=== PATIENT | female | born 1945 | race Caucasian/White ===

== ENCOUNTER → 2016-10-12 | Day surgery (SDC) | payer MEDICARE ==
[~2016-10-12] MED LIST: 1-ME1LIQ PO; AMLO5TAB2 PO; ASPI1TAB69 PO; ASPI81TA82 PO; ATOR40TA PO; ATOR40TA16 PO; BUPIVACAINE HCL PF 0.75% 30 ML VIAL ONE; CALCCHW25 CHEW; CALCCHW25 PO; CHEL50TA PO; GLUCTAB PO; LACTATED RINGER'S 1000 ML INJ 1,000 ML ONE; LIDOCAINE 1.5%/EPINEPHrine 1:200,000 PF SOLN 30 ML AMP ONE; LISI-363 PO; LISI-515 PO; LORA-392 PO; LORA1TAB12 PO; MAGN250T13 PO; MAGN500T4 PO; MIDAZOLAM HCL 5 MG/ML VIAL (1 ML) ONE; OMEP20TA PO; ONDANSETRON HCL 4 MG/2 ML VIAL IV PUSH ONE; PROPOFOL 100 MG/10 ML INJ IV ONE; SODIUM CHLOR 0.9% 250 ML BAG IV ONE; VANCOMYCIN HCL 1000 MG VIAL ONE; VITA-13 PO; VITA2000 PO; VITATAB11 PO; ZINC50TA2 PO; ceFAZolin INJ 1,000 MG VIAL ONE
--- NOTE | 2016-10-13 10:54 | MP ---
cc: JOSÉ LUIS RAUSCH DATE OF SURGERY 10/12/2016 PREOPERATIVE DIAGNOSIS Left elbow comminuted displaced fracture of the radial head. POSTOPERATIVE DIAGNOSIS 1. Left elbow comminuted displaced fracture of the radial Head. 2. Left elbow lateral collateral ligament avulsion tear off the lateral humerus. SURGEON José Luis Rausch MD [employer] GARRISON Beal The surgical procedure was assisted by my Advanced Registered Nurse Practitioner. My EXAMINING OFFICER presence was necessary throughout this case for the manipulation and positioning of the surgical extremity. My EXAMINING OFFICER was assisting me throughout the duration of this procedure. The skill set of an Advance Registered Nurse Practitioner was medically necessary to complete this procedure. During the surgical case, the home appliance tech was working at the back table and the Advance Registered Nurse Practitioner was directly assisting me. PROCEDURE 1. Left elbow treatment of radial head fracture with radial head replacement 2. Left elbow open lateral collateral ligament repair ESTIMATED BLOOD LOSS Minimal ANESTHESIA General and interscalene block. TOURNIQUET TIME 35 minutes at 250 mmHg pressure. IMPLANTS Biomet modular radial head system stem 7-mm x 26 and then Biomet explore modular radial head 10-mm x 22-mm diameter. PROCEDURE The patient had regional anesthesia performed. She had appropriate intravenous antibiotics given. She was brought back to the operative theater. General anesthesia was obtained. The left upper extremity was prepped and draped in the usual sterile fashion. We made a standard incision laterally after the tourniquet had been raised. We incised through the interval of the anconeus and extensor carpi ulnaris. We dissected down to the capsular region. We found traumatic rupture of the lateral collateral ligament posteriorly and inferiorly. We incised through the capsule, found several large fragments of the radial head which were significantly displaced and angulated. We removed these and reconstructed them on the back table to form the entire head. This helped us with templating. We were careful with dissection through the annular ligament region so as not to injure the posterior interosseous nerve. We dissected through this with the Bovie. There were no muscle contractions. We prepared the proximal shaft using an oscillating saw to make a nice fresh cut end. We thoroughly irrigated. We then sequentially hand broached which then allowed us to trial a stem and then the head based off the reconstructed head on the back table. We put the elbow through a range of motion. The prosthesis fit very nicely. We took this out and then placed the final Explore Biomet modular radial stem which was 7-mm in width and 26-mm into position. We then placed the Explore modular radial head 10-mm in height and 22-mm in diameter into position and placed the set screw. We put the elbow through a range of motion. The elbow did have better stability with the radial head now reimplanted as before. There was instability of the ulnar humeral joint. Note that there was some scuffing of the capitellum from the initial fracture and we protected the cartilage during the entire case. Note that we reconstructed the new radial head in situ. There was about a 2-mm gap between the radial head and the capitellum so that we did not overs-tuff the joint. The patient had full range of motion. We took fluoroscopic imaging showing excellent alignment. The stem had nice purchase within the bone. The tourniquet was released. Hemostasis was achieved. We repaired the posterior inferior lateral collateral ligament using an Arthrex BioComposite suture tack suture anchor 3 x 14.5. We placed this into the bone at the area of the avulsion site and then repaired the lateral collateral ligament with #2 FiberWire that was attached. We did this with several sutures in [id number] fashion. We closed the overlying deep fascia with 0 Vicryl followed by 2-0 Vicryl for the skin and 3-0 nylon for skin. The patient was placed into a posterior splint. Postoperative plan is early range of motion. MD PLACIDO Yun/KEM /3:31 PM /10:37 AM
== END | disposition home or self-care (01) ==
LOC: ESDC 12:55
PROVIDERS: ATTEND Orthopaedic Surgery
DX: S52.122A Displaced fracture of head of left radius, initial encounter for closed fracture (principal); S53.432A Radial collateral ligament sprain of left elbow, initial encounter
CPT/HCPCS: 01740; 24343; 24666; 64450; 73080; 76000; C1713; C1776; J0690; J2250; J2405; J3370; J7050; J7120

== ENCOUNTER → 2016-10-21 | Day surgery (SDC) | payer MEDICARE ==
[~2016-10-21] VITALS: Ht 149.9 cm; Wt 67.0 kg
[~2016-10-21] MED LIST changes: -ASPI81TA82 PO; -ATOR40TA PO; -BUPIVACAINE HCL PF 0.75% 30 ML VIAL ONE; -CALCCHW25 PO; -CHEL50TA PO; +CYCLOPENTOLATE HCL 1% OPHT SOLN 2 ML BTL ONE; +FLURBIPROFEN 0.03% OPHT SOLN 2.5 ML BTL ONE; +HYALURONIDASE/LIDOCAINE/EPINEPHRINE/BUPIVACAINE 6 ML SYR ONE; -LACTATED RINGER'S 1000 ML INJ 1,000 ML ONE; -LIDOCAINE 1.5%/EPINEPHrine 1:200,000 PF SOLN 30 ML AMP ONE; +LIDOCAINE HCL 1% 30 ML VIAL ONE; -LISI-363 PO; -LORA-392 PO; -MAGN250T13 PO; -MIDAZOLAM HCL 5 MG/ML VIAL (1 ML) ONE; -ONDANSETRON HCL 4 MG/2 ML VIAL IV PUSH ONE; +PHENYLEPHRINE HCL 10% OPTH SOLN 5 ML BTL ONE; +PROPARACAINE HCL 0.5% OPHT SOLN 15 ML BTL ONE; -PROPOFOL 100 MG/10 ML INJ IV ONE; +PROPOFOL 200 MG/20 ML AMP ONE; -SODIUM CHLOR 0.9% 250 ML BAG IV ONE; +SODIUM CHLORID 0.9% 500 ML INJ 500 ML ONE; +TROPICAMIDE 1% OPHT SOLN 15 ML BTL ONE; -VANCOMYCIN HCL 1000 MG VIAL ONE; -VITA-13 PO; -ceFAZolin INJ 1,000 MG VIAL ONE
[2016-10-21 08:22] VITALS: BP 118/60; PULSE 76; RESP 16; TEMP 98.3; O2SAT 99
[2016-10-21 08:40] VITALS: PULSE 75
[2016-10-21] MEDS: TOBRAMYCIN/DEXAMETHASONE OPTH OINT 3.5 GM TUBE ONE ×2 (09:00→09:11)
[2016-10-21 09:15] VITALS: TEMP 97.8
[2016-10-21 09:35] VITALS: BP 112/54; PULSE 76; RESP 16; O2SAT 99
--- NOTE | 2016-10-25 10:24 | MP ---
cc: SEAN HEREDIA M.D. DATE OF SURGERY: 10/21/2016 [facility] [id number] PREOPERATIVE DIAGNOSIS Visually significant cataract, right eye. POSTOPERATIVE DIAGNOSIS Visually significant cataract, right eye. OPERATION Phacoemulsification with posterior chamber lens implantation, right eye. SURGEON Sean Heredia MD ANESTHESIA Retrobulbar with MAC. COMPLICATIONS None. PROCEDURE After informed consent was obtained, the patient was brought into the operative suite and placed on appropriate monitors by the Anesthesia Service. The patient had received a prior retrobulbar injection of local anesthetic by the Anesthesia Service in the holding area. The patient's operative eye was then prepped and draped in the usual sterile fashion. A wire lid speculum was placed. A paracentesis incision was made in the peripheral cornea with a 1 mm elijah keratome. The anterior chamber was filled with viscoelastic. The anterior chamber was then entered through a stepped, clear corneal incision using a sharp 3 mm elijah keratome. A circular tear capsulorrhexis was then made with a bent needle cystitome. Following hydrodissection of the lens nucleus with balanced saline, phacoemulsification of the nucleus was performed using a modified chopping technique. The remaining cortex was removed with irrigation/aspiration. The prior two procedures were both performed using the handpieces of the [employer] phaco unit. The capsular bag was then filled with viscoelastic. The intraocular lens was then injected into the capsular bag and positioned. The type of intraocular lens and its power can be found elsewhere in this chart. The remaining viscoelastic was then removed from the anterior chamber with the IA handpiece. The anterior chamber was reformed with balanced saline. The wound was then closed securely with stromal hydration. It was found to be watertight to an intraocular pressure of at least 30 mmHg by palpation. A small amount of balanced salt solution was then removed through the paracentesis site and the intraocular pressure at the end of the case was approximately 20 by palpation. All drapes were then removed. TobraDex ointment was then placed in the eye, which was closed beneath a semi-pressure patch dressing. The patient tolerated this procedure well and left the operating room awake and alert. The patient is to follow-up in my office in the morning. ADDENDUM After the clear corneal incisions were sealed watertight, an 8 mm limbal relaxing incision was made with a 600 micron elijah blade, centered around the 70 degree meridian. MD YENI Marino /9:37 AM /10:19 AM
== END | disposition home or self-care (01) ==
LOC: PHSDC 06:55
PROVIDERS: ATTEND Optometrist Occupational Vision
DX: H25.811 Combined forms of age-related cataract, right eye (principal); I10 Essential (primary) hypertension
CPT/HCPCS: 00142; 66984; J7040; V2632